=== PATIENT | female | born 1945 | race Caucasian/White ===

== ENCOUNTER 2018-11-21 19:00 | Inpatient (IN) | payer OTHER ==
--- NOTE | 2018-11-21 21:35 | PDOC ---
History of Present Illness - General Chief Complaint: Pain, Acute Stated Complaint: HEMATURIA Time Seen by Provider: 11/21/18 21:34 - History of Present Illness Initial Comments: 11/21/18 21:42 HPI 73 year old woman with a history of HTN, gout, breast CA (2008), kidney stones who presents with 5 days of hematuria, urinary burning and several days of severe bilateral back pain. She also complains of 2 days of pressure-like L sided chest pain that radiating to the R is worse with movement, breathing and with pressing on the chest. She admits to some shortness of breath 2/2 pain and some nausea. She dneies fever, v/d/c, abdominal pain, lightheadedness, headache. She has no other complaints. Patient is visiting from [facility] GENERAL/CONSTITUTIONAL: No fever or chills. No weakness. HEAD, EYES, EARS, NOSE AND THROAT: No change in vision. No ear pain or discharge. No sore throat. CARDIOVASCULAR: see hpi RESPIRATORY: No cough, wheezing, or hemoptysis. GASTROINTESTINAL: No vomiting, diarrhea or constipation. GENITOURINARY: see hpi MUSCULOSKELETAL: No joint or muscle swelling or pain. No neck or back pain. SKIN: No rash NEUROLOGIC: No headache, vertigo, loss of consciousness, or change in strength/ sensation. PE GENERAL: Awake, alert, and fully oriented, in no acute distress HEAD: No signs of trauma, normocephalic, atraumatic EYES: PERRLA, EOMI, sclera anicteric, conjunctiva clear ENT: oropharynx clear without exudates. Moist mucosa NECK: Normal ROM, supple LUNGS: No distress, speaks full sentences, clear to auscultation bilaterally HEART: Regular rate and rhythm, normal S1 and S2, no murmurs, rubs or gallops, peripheral pulses normal and equal bilaterally. ABDOMEN: Soft, nontender, normoactive bowel sounds. No guarding, no rebound. No masses EXTREMITIES : Normal inspection, Normal range of motion, no edema. No clubbing or cyanosis. NEUROLOGICAL: Cranial nerves II through XII grossly intact. Normal speech, no focal sensorimotor deficits SKIN: Warm, Dry, normal turgor, no rashes or lesions noted MDM 73 year old woman with a history of HTN, gout, breast CA (2008), kidney stones who presents with 5 days of hematuria, urinary burning and several days of severe bilateral back pain. DDX including but not limited to: uti vs pyelo vs nephrolithiasis r/o acs vs PE W/U: - cbc, cmp, ekg, ua TX: - ivf, tylenol ED Course: D-dimer elevated - CTA ordered Patient signed out to resident Dr. Keegan Madden, PGY2 Emergency Medicine Past History - Past Medical History Allergies/Adverse Reactions: Allergies Allergy/AdvReac Type Severity Reaction Status Date / Time Penicillins Allergy Unknown Verified 11/22/18 01:42 Home Medications: Ambulatory Orders Aspirin [ASA -] 81 mg PO DAILY 11/22/18 Febuxostat [Uloric] 40 mg PO DAILY 11/22/18 Ibuprofen 800 mg PO BID 11/22/18 Losartan Potassium 100 mg PO DAILY 11/22/18 Temazepam [Restoril -] 15 mg PO HS 11/22/18 Cyclobenzaprine HCl [Flexeril -] 10 mg PO TID PRN 7 Days #21 tablet 11/23/18 Asthma: No Cancer: No Cardiac Disorders: No COPD: No CHF: No DVT: No HTN: Yes Other medical history: Gout - Suicide/Smoking/Psychosocial Hx Smoking History: Never smoked *Physical Exam - Vital Signs Last Vital Signs Temp Pulse Resp BP Pulse Ox 99.8 F H 96 H 20 143/96 100 11/21/18 19:17 11/21/18 19:17 11/21/18 19:17 11/21/18 19:17 11/21/18 19:17 ED Treatment Course - LABORATORY CBC & Chemistry Diagram: 11/23/18 06:00 11/23/18 06:51 *DC/Admit/Observation/Transfer Diagnosis at time of Disposition: Chest pain, Dysuria, Elevated d-dimer - Discharge Dispostion Condition at time of disposition: Improved - Referrals - Patient Instructions - Post Discharge Activity
[2018-11-21] MEDS ORDERED: SODIUM CHLORIDE 1,000 ML IV SCH (21:45)
[2018-11-21] MEDS ORDERED: ACETAMINOPHEN 1000 MG/100 ML VIAL (NON FORMULARY) IVPB ONE (21:56)
[2018-11-21] MEDS ORDERED: ACETAMINOPHEN INJECTION 100 ML IVPB ONE (22:34)
[2018-11-21 23:52] LABS: BASO % 0.9 % (0-2.0); EOS % 0.7 % (0-4.5); HEMATOCRIT 34.8 % (32.4-45.2); HEMOGLOBIN 11.4 GM/dL (10.7-15.3); LYMPH % 23.1 % (8-40); MCH 26.2 pg (25.7-33.7); MCHC 32.7 g/dl (32.0-36.0); MEAN CELL VOLUME 80.1 fl (80-96); MEAN PLT VOLUME 10.6 fl (7.5-11.1); MONO % 13.3 % (3.8-10.2); PLATELET COUNT 212 K/MM3 (134-434); RBC 4.34 M/mm3 (3.60-5.2); RDW 13.1 % (11.6-15.6); WHITE BLOOD COUNT 8.1 K/mm3 (4.0-10.0)
[2018-11-22 00:19] LABS: ALBUMIN 3.1 g/dl (3.4-5.0); BILIRUBIN,TOTAL 0.8 mg/dL (0.2-1); BLOOD UREA NITROGEN 10.9 mg/dL (7-18); CALCIUM 8.6 mg/dL (8.5-10.1); CREATININE 0.6 mg/dL (0.55-1.3); POTASSIUM 3.8 mmol/L (3.5-5.1); TOT PROT 6.8 g/dl (6.4-8.2)
[2018-11-22] MEDS ORDERED: morphine CARPU-JECT 2 MG/1 ML DISP.SYRIN IVPUSH ONE (00:38)
[2018-11-22] MEDS ORDERED: MORPHINE SULFATE 2 MG/ML VIAL ONE (00:58)
[2018-11-22 02:05] LABS: EPI CELLS 3.6 /HPF (0-5/HPF); HYALINE CASTS 5 /lpf (0-8); URINE APPEARANCE CLEAR; URINE BACTERIA 84.5 /hpf (NEGATIVE); URINE BILIRUBIN NEGATIVE (NEGATIVE); URINE COLOR YELLOW; URINE GLUCOSE (UA) NEGATIVE (NEGATIVE); URINE KETONE NEGATIVE (NEGATIVE); URINE LEUK ESTERASE 1+ (NEGATIVE); URINE NITRITE NEGATIVE (NEGATIVE); URINE PROTEIN 1+ (NEGATIVE); URINE RBC 1 /hpf (0-4); URINE UROBILINOGEN 0.2 mg/dL (0.2-1.0); URINE WBC 28 /hpf (0-5)
--- NOTE | 2018-11-22 02:20 | PDOC ---
*Physical Exam - Vital Signs Last Vital Signs Temp Pulse Resp BP Pulse Ox 98.3 F 72 20 120/93 100 11/22/18 00:48 11/22/18 01:00 11/22/18 01:00 11/22/18 01:00 11/22/18 01:00 ED Treatment Course - LABORATORY CBC & Chemistry Diagram: 11/21/18 22:20 11/21/18 22:20 - ADDITIONAL ORDERS Additional order review: Laboratory Results 11/22/18 11/22/18 11/21/18 00:20 00:20 22:20 D-Dimer 1182 H Sodium Potassium Chloride Carbon Dioxide Anion Gap BUN Creatinine Est GFR (CKD-EPI)AfAm Est GFR (CKD-EPI)NonAf Random Glucose Calcium Total Bilirubin AST ALT Alkaline Phosphatase Troponin I < 0.02 Total Protein Albumin Lipase Cancelled 11/21/18 22:20 D-Dimer Sodium 137 Potassium 3.8 Chloride 104 Carbon Dioxide 25 Anion Gap 8 BUN 10.9 Creatinine 0.6 Est GFR (CKD-EPI)AfAm 106.28 Est GFR (CKD-EPI)NonAf 91.70 Random Glucose 100 Calcium 8.6 Total Bilirubin 0.8 AST 10 L ALT 8 L Alkaline Phosphatase 60 Troponin I Total Protein 6.8 Albumin 3.1 L Lipase 96 11/21/18 22:20 RBC 4.34 MCV 80.1 MCHC 32.7 RDW 13.1 MPV 10.6 Neutrophils % 62.0 Lymphocytes % 23.1 Monocytes % 13.3 H Eosinophils % 0.7 Basophils % 0.9 - Medications Given in the ED: ED Medications Discontinued Medications Generic Name Dose Route Start Last Admin Trade Name Bryn PRN Reason Stop Dose Admin Acetaminophen 1,000 mg 11/21/18 21:56 11/21/18 22:35 Ofirmev Injection - IVPB 11/21/18 21:57 1,000 mg ONCE ONE Administration Morphine Sulfate 2 mg 11/22/18 00:38 11/22/18 01:05 Morphine Injection - IVPUSH 11/22/18 00:39 2 mg ONCE ONE Administration Medical Decision Making - Medical Decision Making Pt was signed out to me by resident Dr. Madden, who explained the presentation , ED course, any pending results, and needed interventions. Pending results include CTA and CT abd/pelvis. Pt is currently stable and is in CT scan. UA showed mild UTI, +LE, +bacteria, -nitrite 11/22/18 02:21 CT abd/pelvis with no acute pathology CTA non-diagnostic for PE, but CTA was stopped mcc through the exam. Thoracic aortic aneurysm 4.5 cm. Pt to be admitted for repeat CTA. Providing additional IV fluids before scan. 11/22/18 03:56 Pt admitted to hospitalist team (Dr. Muniz). Hospitalist team at bedside. 11/22/18 04:03 *DC/Admit/Observation/Transfer Diagnosis at time of Disposition: Dysuria, Elevated d-dimer Chest pain Qualifiers: Chest pain type: unspecified Qualified Code(s): R07.9 - Chest pain, unspecified - Discharge Dispostion Condition at time of disposition: Stable Decision to Admit order: Yes - Referrals - Patient Instructions - Post Discharge Activity
--- NOTE | 2018-11-22 02:49 | PDOC ---
Documentation entered by Christine Browning SCRIBE, acting as scribe for Samara Daniel DO. Samara Daniel DO: This documentation has been prepared by the Nam priest Adrianna, SCRIBE, under my direction and personally reviewed by me in its entirety. I confirm that the documentation accurately reflects all work, treatment, procedures, and medical decision making performed by me. Attending Attestation - Resident Resident Name: Alyce Madden - ED Attending Attestation I have performed the following: I have examined & evaluated the patient, The case was reviewed & discussed with the resident, I agree w/resident's findings & plan - HPI HPI: The patient is a 73 year old woman. with a significant PMH of HTN, gout, breast CA (2008), and kidney stones. who presents to the ED for evaluation of urinary symptoms and back pain for 5 days. Patient endorses hematuria and dysuria with associated bilateral low back pain. Patient additionally reports left sided chest pain that is exacerbated with movement and inspiration, with associated SOB. Allergies: NKA, NKDA Surgical History: None reported Social History: Denies EtOH, tobacco, or illicit drug use - Physicial Exam PE: Agree with resident exam. - Medical Decision Making 11/22/18 02:45 73-year-old female with low back pain following travel Urine suggests mild urinary tract infection Plan for CT abdomen and pelvis to rule out ureterolithiasis D-dimer elevated in setting of recent travel and mild shortness of breath associated with pain Plan for CTA Disposition pending imaging
--- NOTE | 2018-11-22 03:38 | PN ---
Teaching Attending Note Name of Resident: Katherine George ATTENDING PHYSICIAN STATEMENT I saw and evaluated the patient. I reviewed the resident's note and discussed the case with the resident. I agree with the resident's findings and plan as documented. SUBJECTIVE: Patient is a 73 year old woman who is visiting from [place] and has PMH of Penicillin allergy, HTN, Gout, Breast cancer (2008) and Kidney stones who presents with 5 days of hematuria, urinary burning and severe bilateral back pain. She also complains of 2 days of pressure-like left sided chest pain that radiates to the right. Pain is worse with movement, breathing and with pressing on the chest. She admits to some shortness of breath due to pain and to some nausea. She denies fever, chills, vomiting, diarrhea, abdominal pain, lightheadedness or headache. Has FH of HTN and CAD. OBJECTIVE: Alert Vital Signs Period Temp Pulse Resp BP Sys/Marques Pulse Ox Last 24 Hr 98.3 F-99.8 F 70-96 20-20 120-143/93-96 97-100 HEENT: No Jaundice, eye redness or discharge, PERRLA, EOMI. Normocephalic, atraumatic. External ears are normal and hearing is grossly intact. No nasal discharge. Neck: Supple, nontender. No palpable adenopathy or thyromegaly. No JVD Chest: Good effort. Clear to auscultation and percussion. Heart: Regular. No S3, rub or murmur Abdomen: Not distended, soft, nontender and no HSM. No rebound or guarding. Normal bowel sounds. Ext: Peripheral pulses intact. No leg edema. Skin: Warm and dry. No petechiae, rash or ecchymosis. Neuro: Alert. Oriented x3. CN 2-12 grossly intact. Sensation grossly intact in all four extremities and DTR are symmetric. Psych: Appropriate mood and affect. Good insight. Current Medications Generic Name Dose Route Start Last Admin Trade Name Freq PRN Reason Stop Dose Admin Sodium Chloride 1,000 mls @ 42 mls/hr 11/21/18 21:45 11/21/18 22:30 Normal Saline - IV 42 mls/hr ASDIR BUZZ Administration Sodium Chloride 1,000 mls @ 150 mls/hr 11/22/18 03:30 Normal Saline - IV ASDIR BUZZ Abnormal Lab Results 11/21/18 11/21/18 11/22/18 22:20 22:20 00:20 Monocytes % 13.3 H D-Dimer 1182 H AST 10 L ALT 8 L Albumin 3.1 L Urine Protein Ur Leukocyte Esterase 11/22/18 01:30 Monocytes % D-Dimer AST ALT Albumin Urine Protein 1+ H Ur Leukocyte Esterase 1+ H ASSESSMENT AND PLAN: 1. Chest pain/UTI - EKG shows NSR with PACs and no significant ST-T wave changes. Initial troponin is negative. Will admit to telemetry to rule out ACS nd get ECHO. Will treat UTI with Macrobid. CT abdomen/pelvis showed dilated right ureter with no stones; an ascending aortic aneurysm - will refer to vascular surgery for follow up. CTA chest is nondiagnostic for pulmonary embolism. Based on strong clinical suspicion for PE, will commence full dose lovenox, get VQ scan and/or repeat CTA after 24 hours. Consult Pulmonary. 2. Hypoalbuminemia - Possibly due to combined effects of malnutrition and inflammation associated with comorbid chronic conditions. Will ensure adequate dietary protein intake and also consult environmental consultant. 3. Obesity Counseled on the risks associated with obesity. Will provide patient all the necessary assistance, counseling and positive reinforcement to facilitate weight loss. Consult environmental consultant. 4. Hypertension - Restart suitable outpatient antihypertensive drugs when clinically appropriate. Revise regimen to ensure [id number] excellent BP control and halfway house counselor patient on the injurious effects of uncontrolled hypertension. Nonpharmacologic measures to control hypertension like weight loss , salt restriction and exercise discussed. Importance of adherence to treatment regimen and attainment of normotension emphasized. 5. DVT prophylaxis - On empiric full dose Lovenox for PE. 6. Advance directives - Full code
[2018-11-22] MEDS ORDERED: NITROFURANTOIN MACROCRYSTAL 50 MG CAPSULE (FP) PO SCH ×3 (04:00→11:30)
[2018-11-22] MEDS ORDERED: NITROFURANTOIN MACROCRYSTAL 50 MG CAPSULE (FP) PO ONE (04:00)
[2018-11-22] MEDS: SODIUM CHLORIDE 1,000 ML IV SCH (04:21)
[2018-11-22] MEDS ORDERED: NITROFURANTOIN MACROCRYSTAL 50 MG CAPSULE (FP) ONE ×2 (04:23→11:57)
--- NOTE | 2018-11-22 04:25 | HP ---
CHIEF COMPLAINT: Dysuria PCP: None (PCP in [place]) HISTORY OF PRESENT ILLNESS: Patient is a 73 year old female with PMH of HTN, gout, and breast CA who presents with dysuria for 5 days. She denies any urinary frequency, urgency, or gross hematuria but notes that her urine has been an orangeish color. Pt complains of associated BL lower back pain that she attributes to her urinary symptoms. No recent heavy lifting or trauma. She denies fevers or chills. 2 days ago, pt''s back pain began radiating to her L chest. L-sided chest pain is reproducible, pleuritic, exacerbated with movement. She has mild difficulty breathing due to the pain. No hx of frequent UTIs but she has had several kidney stones in the past that were medically treated. ER course was notable for: (1) UA: 1+ LE, 28 WBC (2) Given 1 dose macrobid (3) D-dimer: 1182, CTA was non-diagnostic for PE due to inadequate contrast Recent Travel: Visiting daughter from [place], arrived 2 months ago. PAST MEDICAL HISTORY: HTN Gout Breast CA (2008) Kidney stones PAST SURGICAL HISTORY: Breast resection Social History: Smoking: denies Alcohol: denies Drugs: denies Family History: Mother: HTN Father: [place] () Son: HTN Allergies Penicillins Allergy (Unknown, Verified 11/22/18 01:42) HOME MEDICATIONS: REVIEW OF SYSTEMS CONSTITUTIONAL: chills Absent: fever, diaphoresis, generalized weakness, malaise, loss of appetite, weight change HEENT: Absent: rhinorrhea, nasal congestion, throat pain, throat swelling, difficulty swallowing, mouth swelling, ear pain, eye pain, visual changes CARDIOVASCULAR: Absent: chest pain, syncope, palpitations, irregular heart rate, lightheadedness , peripheral edema RESPIRATORY: Absent: cough, shortness of breath, dyspnea with exertion, orthopnea, wheezing, stridor, hemoptysis GASTROINTESTINAL: Absent: abdominal pain, abdominal distension, nausea, vomiting, diarrhea, constipation, melena, hematochezia GENITOURINARY: dysuria Absent: frequency, urgency, hesitancy, hematuria, flank pain, genital pain MUSCULOSKELETAL: lower back pain Absent: myalgia, arthralgia, joint swelling, neck pain SKIN: Absent: rash, itching, pallor HEMATOLOGIC/IMMUNOLOGIC: Absent: easy bleeding, easy bruising, lymphadenopathy, frequent infections ENDOCRINE: Absent: unexplained weight gain, unexplained weight loss, heat intolerance, cold intolerance NEUROLOGIC: Absent: headache, focal weakness or paresthesias, dizziness, unsteady gait, seizure, mental status changes, bladder or bowel incontinence PSYCHIATRIC: Absent: anxiety, depression, suicidal or homicidal ideation, hallucinations. PHYSICAL EXAMINATION Vital Signs - 24 hr 11/21/18 11/22/18 11/22/18 19:17 00:48 01:00 Temperature 99.8 F H 98.3 F Pulse Rate 96 H Pulse Rate [ 70 72 Apical] Respiratory 20 20 Rate Blood Pressure 143/96 Blood Pressure 120/93 120/93 [Right] O2 Sat by Pulse 100 98 100 Oximetry (%) 11/22/18 02:45 Temperature Pulse Rate Pulse Rate [ Apical] Respiratory Rate Blood Pressure Blood Pressure [Right] O2 Sat by Pulse 97 Oximetry (%) GENERAL: Awake, alert, and fully oriented, in no acute distress. HEAD: Normal with no signs of trauma. EYES: Pupils equal, round and reactive to light, extraocular movements intact, sclera anicteric, conjunctiva clear. No lid lag. EARS, NOSE, THROAT: Ears normal, nares patent, oropharynx clear without exudates. Moist mucous membranes. NECK: Normal range of motion, supple without lymphadenopathy, JVD, or masses. LUNGS: Breath sounds equal, clear to auscultation bilaterally. No wheezes, and no crackles. No accessory muscle use. HEART: Regular rate and rhythm, normal S1 and S2 without murmur, rub or gallop. ABDOMEN: Mild ower abd tenderess. Soft, not distended, normoactive bowel sounds , no guarding, no rebound, no masses. No hepatomegaly or splenomegaly. MUSCULOSKELETAL: Normal range of motion at all joints. No bony deformities. No CVA tenderness. Tenderness at lower back BL. Positive straight leg test UPPER EXTREMITIES: 2+ pulses, warm, well-perfused. No cyanosis. No clubbing. No peripheral edema. LOWER EXTREMITIES: 2+ pulses, warm, well-perfused. No calf tenderness. No peripheral edema. NEUROLOGICAL: Cranial nerves II-XII intact. Normal speech. Normal gait. Sensation intact BL PSYCHIATRIC: Cooperative. Good eye contact. Appropriate mood and affect. SKIN: Warm, dry, normal turgor, no rashes or lesions noted, normal capillary refill. Laboratory Results - last 24 hr CBC, BMP 11/21/18 22:20 11/21/18 22:20 ] Urine Test Results Urine Color Yellow Urine Appearance Clear Urine pH 6.0 (5.0-8.0) Ur Specific [place] 1.011 (1.010-1.035) Urine Protein 1+ (NEGATIVE) H Urine Glucose (UA) Negative (NEGATIVE) Urine Ketones Negative (NEGATIVE) Urine Blood Negative (NEGATIVE) Urine Nitrite Negative (NEGATIVE) Urine Bilirubin Negative (NEGATIVE) Ur Leukocyte Esterase 1+ (NEGATIVE) H ASSESSMENT/PLAN: Patient is a 73 year old female with PMH of HTN, gout, and breast CA who presents with dysuria for 5 days. #Dysuria UA: 1+ LE, 28 WBC, 1+ protein Unlikely pyelo given imaging, afebrile, no leukocytosis, no CVA tenderness Will cont to treat with macrobid Q6H F/u urine cx #Low back pain Neg red flag sx Sensation intact, no incontinence, neurovascularly intact Straight leg test positive, indicates likely 2/2 arthritis or herniated disc. Recommend MRI as outpt for further w/u May also be 2/2 UTI Pain control with tylenol PT eval, possible benefit to rehab as outpt #Chest pain with subjective SOB Given pt's hx and elevated D-dimer, cannot r/o PE CTA was non-diagnostic. Consulting pulm for eval and V/Q scan as pt cannot repeat CTA yet. Recommend repeat CTA in 24 hours Will treat with full dose lovenox BID. Pt given one dose 70mg SQ at 5am. Pain is reproducible and exacerbated with movement. May also be referred pain from lower back, but cannot r/o ACS Trop neg, cont to trend serial trops. EKG NSR and no ischemic changes Monitor on tele #Aneurysm 4.5cm fusiform aneurysm in ascending aorta. Pt denies hx of aneurysm or ever being told she has one Recommend f/u with vascular as outpt for monitoring and bi-annual CT imaging #HTN Cont home meds: losartan 100mg daily #Gout Med rec pt's dose of uloric in am and cont #Breast CA Stable at this time #FEN IV NS @ 50ml/hr Sodium-controlled diet #DVT ppx Treating with full dose lovenox BID #Dispo Monitor on tele Visit type - Emergency Visit Emergency Visit: Yes ED Registration Date: 11/22/18 Care time: The patient presented to the Emergency Department on the above date and was hospitalized for further evaluation of their emergent condition. - New Patient This patient is new to me today: Yes Date on this admission: 11/22/18 - Critical Care Critical Care patient: No ATTENDING PHYSICIAN STATEMENT I saw and evaluated the patient. I reviewed the resident's note and discussed the case with the resident. I agree with the resident's findings and plan as documented. SUBJECTIVE: OBJECTIVE: ASSESSMENT AND PLAN:
[2018-11-22] MEDS ORDERED: SODIUM CHLORIDE 1,000 ML IV SCH (04:45)
[2018-11-22] MEDS ORDERED: ENOXAPARIN NA (PORCINE) 60 MG/0.6 ML DISP.SYRIN SQ ONE (04:45)
[2018-11-22] MEDS ORDERED: ACETAMINOPHEN 1000 MG/100 ML VIAL (NON FORMULARY) IVPB ONE (04:46)
[2018-11-22] MEDS ORDERED: ACETAMINOPHEN INJECTION 100 ML IVPB ONE (05:50)
[2018-11-22] MEDS ORDERED: ENOXAPARIN NA (PORCINE) 80 MG/0.8 ML DISP.SYRIN SQ ONE ×2 (05:50→22:27)
--- NOTE | 2018-11-22 10:06 | ECHO ---
Version: 1 Name: JEANIE PRUETT Exam: Adult Echocardiogram Study Date: 11/22/2018, 8:18 AM Age: 73 Years MMode/2D Measurements & Calculations IVSd: 1.06 cm LVIDs: 2.9 cm LVIDd: 3.9 cm LVPWd: 1.09 cm LAV (MOD-bp): 45.3 ml LVOT diam: 2.02 cm Ao root diam: 3.7 cm LA dimension: 3.4 cm Doppler Measurements & Calculations MV E max elvis: 94.6 cm/sec Med E/e': 15.0 MV A max elvis: 99.9 cm/sec Med Peak E' Elvis: 6.3 cm/sec MV E/A: 0.95 Lat E/e': 11.8 Lat Peak E' Elvis: 8.1 cm/sec MR max P.7 mmHg Ao max P.2 mmHg Ao V2 max: 167.6 cm/sec AI P1/2t: 875.7 msec TR max elvis: 221.3 cm/sec TR max P.6 mmHg Left Ventricle The left ventricle is normal in size. Left ventricular systolic function is low normal. Abnormal bonifacio stolic relaxation. Right Ventricle The right ventricle is normal in size and function. Atria Normal left and right atrial size and function. Mitral Valve The mitral valve is normal in structure and function. There is mild mitral regurgitation. Tricuspid Valve The tricuspid valve is normal in structure and function. There is mild tricuspid regurgitation. Aortic Valve Fibrocalcific changes of the AV without aortic stenosis. Pulmonic Valve The pulmonic valve is normal in structure and function. Great Vessels The aortic root is normal size. Pericardium/Pleura There is no pericardial effusion. Summary Statements The left ventricle is normal in size. Left ventricular systolic function is low normal. Abnormal diastolic relaxation The right ventricle is normal in size and function. Normal left and right atrial size and function. The mitral valve is normal in structure and function. There is mild mitral regurgitation. The tricuspid valve is normal in structure and function. There is mild tricuspid regurgitation. Fibrocalcific changes of the AV without aortic stenosis The pulmonic valve is normal in structure and function. EF 50% PASP 29 mmHg MD Tyson Curry 11/22/2018, 9:05 AM Ordering Physician: Katherine George Performed By: Eloise Medina
[2018-11-22] MEDS ORDERED: CEFTRIAXONE 1,000 MG in DEXTROSE 5%-WATER - 50 ML IVPB ONE (10:56)
[2018-11-22] MEDS: LOSARTAN POTASSIUM 50 MG TABLET (FP) PO SCH (11:10)
[2018-11-22 11:11] LABS: EOS % 4.8 % (0-4.5); HEMATOCRIT 33.6 % (32.4-45.2); HEMOGLOBIN 11.4 GM/dL (10.7-15.3); LYMPH % 29.9 % (8-40); MCH 26.9 pg (25.7-33.7); MCHC 33.9 g/dl (32.0-36.0); MEAN CELL VOLUME 79.2 fl (80-96); MONO % 14.5 % (3.8-10.2); NEUT % 49.8 % (42.8-82.8); PLATELET COUNT 194 K/MM3 (134-434); RBC 4.24 M/mm3 (3.60-5.2); RDW 12.9 % (11.6-15.6); WHITE BLOOD COUNT 6.1 K/mm3 (4.0-10.0)
[2018-11-22 11:16] LABS: ALBUMIN 3.1 g/dl (3.4-5.0); BILIRUBIN,TOTAL 0.8 mg/dL (0.2-1); CALCIUM 8.7 mg/dL (8.5-10.1); CREATININE 0.6 mg/dL (0.55-1.3); POTASSIUM 3.4 mmol/L (3.5-5.1); TOT PROT 6.8 g/dl (6.4-8.2)
[2018-11-22] MEDS ORDERED: LOSARTAN POTASSIUM 50 MG TABLET (FP) ONE (11:57)
--- NOTE | 2018-11-22 14:56 | PN ---
Physical Exam: SUBJECTIVE: Patient seen and examined at bedside. Pt states she has severe chest pain worse when she moves. pt denies SOB and palpitations. OBJECTIVE: Vital Signs Period Temp Pulse Resp BP Sys/Marques Pulse Ox Last 24 Hr 98.3 F-99.8 F 58-96 18-20 120-143/93-96 95-100 GENERAL: The patient is awake, alert, and fully oriented, in no acute distress. LUNGS: Breath sounds equal, clear to auscultation bilaterally, no wheezes, no crackles, no accessory muscle use. HEART: Regular rate and rhythm, S1, S2 without murmur, rub or gallop. ABDOMEN: Soft, nontender, nondistended, normoactive bowel sounds, no guarding EXTREMITIES: 2+ pulses, warm, well-perfused, no edema. SKIN: Warm, dry, normal turgor, no rashes or lesions noted Laboratory Last Values WBC 6.1 K/mm3 (4.0-10.0) 11/22/18 10:20 RBC 4.24 M/mm3 (3.60-5.2) 11/22/18 10:20 Hgb 11.4 GM/dL (10.7-15.3) 11/22/18 10:20 Hct 33.6 % (32.4-45.2) 11/22/18 10:20 MCV 79.2 fl (80-96) L 11/22/18 10:20 MCH 26.9 pg (25.7-33.7) 11/22/18 10:20 MCHC 33.9 g/dl (32.0-36.0) 11/22/18 10:20 RDW 12.9 % (11.6-15.6) 11/22/18 10:20 Plt Count 194 K/MM3 (134-434) 11/22/18 10:20 MPV 10.0 fl (7.5-11.1) 11/22/18 10:20 Absolute Neuts (auto) 3.1 K/mm3 (1.5-8.0) 11/22/18 10:20 Neutrophils % 49.8 % (42.8-82.8) 11/22/18 10:20 Lymphocytes % 29.9 % (8-40) D 11/22/18 10:20 Monocytes % 14.5 % (3.8-10.2) H 11/22/18 10:20 Eosinophils % 4.8 % (0-4.5) H D 11/22/18 10:20 Basophils % 1.0 % (0-2.0) 11/22/18 10:20 Nucleated RBC % 0 % (0-0) 11/22/18 10:20 D-Dimer 1182 ng/ml (0-500) H 11/22/18 00:20 Sodium 141 mmol/L (136-145) 11/22/18 10:20 Potassium 3.4 mmol/L (3.5-5.1) L 11/22/18 10:20 Chloride 108 mmol/L (98-107) H 11/22/18 10:20 Carbon Dioxide 25 mmol/L (21-32) 11/22/18 10:20 Anion Gap 8 MMOL/L (8-16) 11/22/18 10:20 BUN 10.0 mg/dL (7-18) 11/22/18 10:20 Creatinine 0.6 mg/dL (0.55-1.3) 11/22/18 10:20 Est GFR (CKD-EPI)AfAm 106.28 11/22/18 10:20 Est GFR (CKD-EPI)NonAf 91.70 11/22/18 10:20 POC Glucometer 82 UNITS (80-120) 11/22/18 08:24 Random Glucose 106 mg/dL (74-106) 11/22/18 10:20 Calcium 8.7 mg/dL (8.5-10.1) 11/22/18 10:20 Total Bilirubin 0.8 mg/dL (0.2-1) 11/22/18 10:20 AST 13 U/L (15-37) L 11/22/18 10:20 ALT 10 U/L (13-61) L 11/22/18 10:20 Alkaline Phosphatase 62 U/L (45-117) 11/22/18 10:20 Troponin I < 0.02 ng/ml (0.00-0.05) 11/21/18 22:20 Total Protein 6.8 g/dl (6.4-8.2) 11/22/18 10:20 Albumin 3.1 g/dl (3.4-5.0) L 08/20/19 10:20 Lipase 96 U/L (73-393) 11/21/18 22:20 Urine Color Yellow 11/22/18 01:30 Urine Appearance Clear 11/22/18 01:30 Urine pH 6.0 (5.0-8.0) 11/22/18 01:30 Ur Specific [place] 1.011 (1.010-1.035) 11/22/18 01:30 Urine Protein 1+ (NEGATIVE) H 11/22/18 01:30 Urine Glucose (UA) Negative (NEGATIVE) 11/22/18 01:30 Urine Ketones Negative (NEGATIVE) 11/22/18 01:30 Urine Blood Negative (NEGATIVE) 11/22/18 01:30 Urine Nitrite Negative (NEGATIVE) 11/22/18 01:30 Urine Bilirubin Negative (NEGATIVE) 11/22/18 01:30 Urine Urobilinogen 0.2 mg/dL (0.2-1.0) 11/22/18 01:30 Ur Leukocyte Esterase 1+ (NEGATIVE) H 11/22/18 01:30 Urine WBC (Auto) 28 /hpf (0-5) 11/22/18 01:30 Urine RBC (Auto) 1 /hpf (0-4) 11/22/18 01:30 Urine Casts (Auto) 5 /lpf (0-8) 11/22/18 01:30 U Epithel Cells (Auto) 3.6 /HPF (0-5/HPF) 11/22/18 01:30 Urine Bacteria (Auto) 84.5 /hpf (NEGATIVE) 11/22/18 01:30 Current Medications Acetaminophen (Tylenol -) 650 mg PO Q6H PRN PRN Reason: Fever Or Pain Enoxaparin Sodium (Lovenox -) 70 mg SQ BID [facility] Sodium Chloride (Normal Saline -) 1,000 mls @ 150 mls/hr IV ASDIR BUZZ Last Admin: 11/22/18 04:21 Dose: 150 mls/hr Sodium Chloride (Normal Saline -) 1,000 mls @ 50 mls/hr IV ASDIR BUZZ Stop: 11/23/18 04:41 Last Admin: 11/22/18 04:59 Dose: 50 mls/hr Losartan Potassium (Cozaar -) 100 mg PO DAILY BUZZ Last Admin: 11/22/18 11:10 Dose: 100 mg Nitrofurantoin Macrocrystals (Macrodantin -) 100 mg PO Q6HPO [facility] CT A/P : IMPRESSION: Mild bibasal atelectatic changes. Mild cardiomegaly with a trace of pericardial effusion. Tiny gallstones without CT evidence of acute cholecystitis. Left adrenal low-attenuation nodule measuring 2.4 x 1.8 cm that statistically may represent an adrenal adenoma. Irregular contour of the right kidney suggestive of significant scarring with multiple calcific densities the largest in its lower pole measuring 2.5 cm. Findings may be due to chronic infection. Moderate right renal hydroureteronephrosis without gross evidence of an obstructing stone. Nonvisualization of the appendix. There is no evidence of small bowel obstruction. No CT evidence of an acute process in the abdomen and pelvis. A preliminary report was forwarded by the [facility] service, IMAGING PMP ASSESSMENT/PLAN: 73 yo F with PMH of HTN, gout, and breast CA who presents to ED w/ 1 week LBP, dysuria for 5 days. Pt also complains of reproducible CP x 2 days. Atypical CP -EKG reviewed by me, NSR -reproducible, worse on palpation -troponin neg -D-Dimer elevated, CTA unable to r/o PE as there was issue w/ contrast -Pulm recs appreciated -awaiting LE doppler to r/o DVT -pt had cardiac testing in september, awaiting f/u from prior records Dysuria -UA: 1+ LE, 28 WBC, 1+ protein -awaiting U Cx -c/w macrobid Q6 Low back pain -further workup outpt -tylenol for pain mgmt -PT Aortic Aneurysm -incidental CT finding -outpt vascular f/u -bi annual CT imaging HTN -C/w home med, losartan 100mg daily Gout -c/w uloric Breast CA -f/u outpt F/E/N -Sodium-controlled diet DVT ppx - full dose lovenox BID Dispo: continue to monitor on tele Visit type - Emergency Visit Emergency Visit: Yes ED Registration Date: 11/22/18 Care time: The patient presented to the Emergency Department on the above date and was hospitalized for further evaluation of their emergent condition. - New Patient This patient is new to me today: Yes Date on this admission: 11/22/18 - Critical Care Critical Care patient: No - Discharge Referral Referred to [facility] No ATTENDING PHYSICIAN STATEMENT I saw and evaluated the patient. I reviewed the resident's note and discussed the case with the resident. I agree with the resident's findings and plan as documented. SUBJECTIVE: OBJECTIVE: ASSESSMENT AND PLAN:
--- NOTE | 2018-11-22 15:00 | CON.PULM ---
Consult Consult Specialty:: PULMONARY Referred by:: Dr Chauhan Reason for Consultation:: r/o PE - History of Present Illness Chief Complaint: chest pain History of Present Illness: 73yo female with h/o HTN, gout, breast ca s/p right lumpectomy/lymph node dissection/RT who was admitted with dysuria and chest pain x 5 days. Chest pain described as starting near her left axilla, pressure like radiating across chest to the right. Worse with rotating her torso to the left but completely resolves in other positions. When the pain occurs, she does report shortness of breath. No fevers, chills or sweats. No palpitations. She is a remote smoker, no personal or family history of clots. No prolonged sedentary periods or leg trauma. Denies leg swelling or pain. CTA chest attempted but poorly timed study. - History Source History Provided By: Patient, Family Member, Medical Record Limitations to Obtaining History: No Limitations - Past Medical History Cardio/Vascular: Yes: HTN - Smoking History Smoking history: Never smoked Home Medications - Allergies Allergies/Adverse Reactions: Allergies Allergy/AdvReac Type Severity Reaction Status Date / Time Penicillins Allergy Unknown Verified 11/22/18 01:42 - Home Medications Home Medications: Ambulatory Orders Aspirin [ASA -] 81 mg PO DAILY 11/22/18 Ibuprofen 800 mg PO BID 11/22/18 Losartan Potassium 100 mg PO DAILY 11/22/18 Temazepam [Restoril] 15 mg PO HS 11/22/18 Review of Systems - Review of Systems Constitutional: denies: Chills, Fever Eyes: denies: Recent Change in Vision HENT: denies: Nasal Congestion, Throat Pain Cardiovascular: reports: Chest Pain, Shortness of Breath. denies: Palpitations Respiratory: denies: Cough, Hemoptysis, Wheezing Gastrointestinal: denies: Abdominal Pain, Nausea, Vomiting Genitourinary: reports: Dysuria Neurological: denies: Headache Endocrine: denies: Unexplained Weight Loss Physical Exam Vital Sings: Vital Signs Temperature 98.3 F 11/22/18 00:48 Pulse Rate 58 L 11/22/18 06:33 Respiratory Rate 18 11/22/18 06:33 Blood Pressure 129/96 11/22/18 06:33 O2 Sat by Pulse Oximetry (%) 95 11/22/18 06:33 Constitutional: Yes: Calm Eyes: Yes: Conjunctiva Clear, EOM Intact HENT: Yes: Atraumatic, Normocephalic Neck: Yes: Supple, Trachea Midline Cardiovascular: Yes: Regular Rate and Rhythm Respiratory: Yes: Diminished (decreased breath sounds at the bases) ...Clubbing: No Gastrointestinal: Yes: Normal Bowel Sounds, Soft. No: Tenderness Edema: No Neurological: Yes: Alert, Oriented Labs: CBC, BMP 11/22/18 10:20 11/22/18 10:20 Imaging - Results Chest X-ray: Report Reviewed, Image Reviewed Cat Scan: Report Reviewed, Image Reviewed (no infiltrates) Assessment/Plan UTI Atypical Chest Pain HTN h/o Breast Ca Elevated D-dimer - chest pain positional, reproducible with palpation, resolves with positions, not tachycardic or hypoxic - echocardiogram without right heart abnormalities and pt without risk factors - can obtain LE dopplers and if negative, can defer further PE work up at this time - continue antibiotics - f/u cultures - DVT prophylaxis Thank you for this consult Chauncey Grey MD
--- NOTE | 2018-11-22 16:10 | EKG ---
Test Reason : Blood Pressure : / mmHG Vent. Rate : 095 BPM Atrial Rate : 095 BPM P-R Int : 160 ms QRS Dur : 080 ms QT Int : 374 ms P-R-T Axes : 005 -36 005 degrees QTc Int : 469 ms SINUS RHYTHM WITH PREMATURE ATRIAL COMPLEXES LEFT AXIS DEVIATION MINIMAL VOLTAGE CRITERIA FOR LVH, MAY BE NORMAL VARIANT ABNORMAL ECG NO PREVIOUS ECGS AVAILABLE Confirmed by MD VI, THOMAS ([id number]) on 11/22/2018 4:10:47 PM Referred By: Confirmed By:THOMAS LEBRON MD
--- NOTE | 2018-11-22 17:21 | PN ---
Teaching Attending Note Name of Resident: Whitney Barrera ATTENDING PHYSICIAN STATEMENT I saw and evaluated the patient. I reviewed the resident's note and discussed the case with the resident. I agree with the resident's findings and plan as documented. SUBJECTIVE:c/o CP that is worse with movement. dysuria improved however continues to have orange urine. denies fever, chills, cough, hemoptysis, N/V/C/D treadmill stress test 1998. reports as normal OBJECTIVE: Last Vital Signs Temp Pulse Resp BP Pulse Ox 98.3 F 64 18 123/77 100 11/22/18 00:48 11/22/18 10:00 11/22/18 10:00 11/22/18 10:00 11/22/18 10:00 General NAD CV S1 S2 RRR no murmur/rub/gallop +chest wall tenderness lungs CTA B/L no wheezing/rales/rhonchi Abdomen soft NT/ND Extremiteis +L calf tenderness neg calderon. no pedal edema ASSESSMENT AND PLAN: 73yo F wtih PMH HTN, gout, nephrolithasis, breast ca 2008 with Rtx and chemo s/ p partial masectomy presented with the Er with CP and dysuria and found to have elevated ddimer 1. CP- likely musculoskeletal. concern for PE raised due to elevated ddimer and recent travel from [place]. CTA done was incomplete. will obtain doppler to r/o DVT. pulmonary consulted and stated no indication for VQ scan as risk factors low. can stop full dose lovenox at this time. will trend cardiac enzymes as pt has risk factors for ACS given chest radiation. cardiac monitoring.echo noted. spoke with daughter who would prefer for her to have stress testing with her doctors in [place]. 2. UTI- has rash with PCN. will give bactrim. f/u cx 3. orange urine- does take Vitamin B complex which can cause it but this is new. will monitor for now. UA neg for blood or RBC. not on medication which can induce orange urine. claims not related to any new food consumption 4. AAA- 4.5cm. vascular surgery consult 5. DVT ppx- lovenox 6. spoke with daughter present at bedside. will try to obtain records from [place]. plan to discharge in next 24H if symptoms improved.
[2018-11-22] MEDS: NITROFURANTOIN MACROCRYSTAL 50 MG CAPSULE (FP) PO SCH (18:25)
[2018-11-22] MEDS: ACETAMINOPHEN 325 MG TABLET (FP) PO PRN (19:32)
[2018-11-22] MEDS ORDERED: ACETAMINOPHEN 325 MG TABLET (FP) ONE (19:40)
[2018-11-22] MEDS ORDERED: ENOXAPARIN NA (PORCINE) 80 MG/0.8 ML DISP.SYRIN SQ SCH (22:00)
[2018-11-23] MEDS ORDERED: NITROFURANTOIN MACROCRYSTAL 50 MG CAPSULE (FP) ONE (00:21)
[2018-11-23] MEDS: NITROFURANTOIN MACROCRYSTAL 50 MG CAPSULE (FP) PO SCH ×4 (00:27→17:09)
[2018-11-23 02:32] VITALS: BMI 30.1
[2018-11-23] MEDS: ACETAMINOPHEN 325 MG TABLET (FP) PO PRN (03:15)
[2018-11-23] MEDS: SODIUM CHLORIDE 1,000 ML IV SCH (03:17)
[2018-11-23 08:11] LABS: HEMATOCRIT 32.4 % (32.4-45.2); HEMOGLOBIN 10.8 GM/dL (10.7-15.3); MCH 26.5 pg (25.7-33.7); MCHC 33.4 g/dl (32.0-36.0); MEAN CELL VOLUME 79.3 fl (80-96); MEAN PLT VOLUME 10.4 fl (7.5-11.1); PLATELET COUNT 207 K/MM3 (134-434); RBC 4.08 M/mm3 (3.60-5.2); RDW 12.8 % (11.6-15.6); WHITE BLOOD COUNT 5.7 K/mm3 (4.0-10.0)
[2018-11-23 08:22] LABS: ANION GAP 10 MMOL/L (8-16); BLOOD UREA NITROGEN 8.8 mg/dL (7-18); CALCIUM 8.6 mg/dL (8.5-10.1); CHLORIDE 105 mmol/L (98-107); CO2 26 mmol/L (21-32); CREATININE 0.5 mg/dL (0.55-1.3); GLUCOSE,RANDOM 87 mg/dL (74-106); MAGNESIUM 1.3 mg/dL (1.8-2.4); PHOSPHOROUS 2.7 mg/dL (2.5-4.9); POTASSIUM 3.7 mmol/L (3.5-5.1); SODIUM 141 mmol/L (136-145)
[2018-11-23] MEDS ORDERED: MAGNESIUM SULF 50% (8.12 MEQ/2 ML-1 GM VIAL) IVPB ONE (08:45)
[2018-11-23] MEDS: LOSARTAN POTASSIUM 50 MG TABLET (FP) PO SCH (09:23)
[2018-11-23] MEDS ORDERED: ENOXAPARIN NA (PORCINE) 40 MG/0.4 ML DISP.SYRIN SQ SCH (10:00)
[2018-11-23] MEDS ORDERED: NITROFURANTOIN MACROCRYSTAL 50 MG CAPSULE (FP) PO SCH (10:00)
[2018-11-23] MEDS ORDERED: CYCLOBENZAPRINE HCL 10 MG TABLET (FP) PO PRN (10:37)
--- NOTE | 2018-11-23 10:59 | PN ---
Progress Note, Physician History of Present Illness: PULMONARY ALERT STILL C/O CHEST AND BACK PAIN,REPRODUCIBLE,INCREASED WITH MOVEMENT - Current Medication List Current Medications: Active Medications Acetaminophen (Tylenol -) 650 mg PO Q6H PRN PRN Reason: Fever Or Pain Last Admin: 11/22/18 19:32 Dose: 650 mg Cyclobenzaprine HCl (Flexeril -) 10 mg PO TID PRN PRN Reason: MUSCLE SPASMS Enoxaparin Sodium (Lovenox -) 40 mg SQ DAILY [facility] Last Admin: 11/23/18 09:22 Dose: 40 mg Losartan Potassium (Cozaar -) 100 mg PO DAILY [facility] Last Admin: 11/23/18 09:23 Dose: 100 mg Nitrofurantoin Macrocrystals (Macrodantin -) 100 mg PO Q6HPO [facility] Last Admin: 11/23/18 05:46 Dose: 100 mg - Objective Vital Signs: Vital Signs Temperature 98.7 F 11/23/18 08:26 Pulse Rate 66 11/23/18 08:26 Respiratory Rate 22 H 11/23/18 08:34 Blood Pressure 144/89 11/23/18 08:26 O2 Sat by Pulse Oximetry (%) 100 11/23/18 08:34 Constitutional: Yes: Well Nourished, Calm Eyes: Yes: WNL HENT: Yes: WNL Neck: Yes: WNL Cardiovascular: Yes: Regular Rate and Rhythm, S1, S2 Respiratory: Yes: CTA Bilaterally Gastrointestinal: Yes: Normal Bowel Sounds, Soft Extremities: Yes: WNL Edema: No Labs: CBC, BMP 11/23/18 06:00 11/23/18 06:51 Problem List - Problems (1) Chest pain Code(s): R07.9 - CHEST PAIN, UNSPECIFIED Qualifiers: Chest pain type: unspecified Qualified Code(s): R07.9 - Chest pain, unspecified (2) Dysuria Code(s): R30.0 - DYSURIA (3) Elevated d-dimer Code(s): R79.89 - OTHER SPECIFIED ABNORMAL FINDINGS OF BLOOD CHEMISTRY Assessment/Plan Assessment/Plan UTI Atypical Chest Pain HTN h/o Breast Ca Elevated D-dimer - chest pain positional, reproducible with palpation, resolves with positions, not tachycardic or hypoxic - echocardiogram without right heart abnormalities and pt without risk factors - LE dopplers are negative, can defer further PE work up at this time - antibiotics - f/u cultures - DVT prophylaxis - analgesics DR RIVAS
--- NOTE | 2018-11-23 11:02 | PN ---
Teaching Attending Note Name of Resident: Whitney Barrera ATTENDING PHYSICIAN STATEMENT I saw and evaluated the patient. I reviewed the resident's note and discussed the case with the resident. I agree with the resident's findings and plan as documented. SUBJECTIVE:states CP is better but still there, also having low back pain that is across the lower back which is her chronic pain but causing a lot of discomfort. states she vomited this AM shortly after waking up but ate all her breakfast without difficulty or nausea. denies SOB, cough, fever, chills, N/V/C/ D states orange urine is clearing OBJECTIVE: Last Vital Signs Temp Pulse Resp BP Pulse Ox 98.7 F 66 22 H 144/89 100 11/23/18 08:26 11/23/18 08:26 11/23/18 08:34 11/23/18 08:26 11/23/18 08:34 General NAD CV S1 S2 RRR no murmur/rub/gallop +chest wall tenderness over the L breast lungs CTA B/L no wheezing/rales/rhonchi Abdomen soft NT/ND Extremiteis B/L muscular spasms in lower lumbar region R>L no bone point pain no CVA tenderness ASSESSMENT AND PLAN: 73yo F wtih PMH HTN, gout, nephrolithasis, breast ca 2008 with Rtx and chemo s/ p partial masectomy presented with the Er with CP and dysuria and found to have elevated ddimer 1. CP- likely musculoskeletal. low risk for PE and doppler negative. troponins neg x2. spoke with daughter who wants her to have stress test done in [facility] with her network of doctors there. will have one scheduled for once she returns. 2. back pain- seem muscular. states pain is chronic. lori give flexeril 3. vomiting- possible pain related. tolerated food without difficulty. no nausea or complaints now 4. UTI- has rash with PCN. Ucx negative. d/c abx 5. orange urine- unclear etiology. denies eating any food dyed orange or vitamins or herbal supplements in past few weeks. now is clearing and states its yellow. possible she was dehydrated and was a very dark yellow that appeared orange> urology outpatient if returns 6. AAA- 4.5cm. vascular surgery consult 7. adrenal nodule- outpatient follow up 8. 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 renal function normal. should have it followed iwth primary if not new 9. DVT ppx- lovenox 10. will re-assess later if pain is improved can d/c later today
[2018-11-23 15:02] VITALS: BP 144/83; PULSE 68; TEMP 98.4
--- NOTE | 2018-11-23 15:36 | DS ---
Physical Exam: SUBJECTIVE: Patient seen and examined at bedside. pt states that her pain is improved. pt states her urinary symptoms have resolved. OBJECTIVE: Vital Signs Period Temp Pulse Resp BP Sys/Marques Pulse Ox Last 24 Hr 98 F-98.7 F 64-71 14-22 127-149/83-99 95-100 PHYSICAL EXAM GENERAL: The patient is awake, alert, and fully oriented, in no acute distress. LUNGS: Breath sounds equal, clear to auscultation bilaterally, no wheezes, no crackles, no accessory muscle use. HEART: Regular rate and rhythm, S1, S2 without murmur, rub or gallop. ABDOMEN: Soft, nontender, nondistended, normoactive bowel sounds, no guarding, no rebound EXTREMITIES: 2+ pulses, warm, well-perfused, no edema. SKIN: Warm, dry, normal turgor, no rashes or lesions noted. LABS Laboratory Results - last 24 hr 11/21/18 11/23/18 11/23/18 22:20 06:00 06:51 WBC 5.7 RBC 4.08 Hgb 10.8 Hct 32.4 MCV 79.3 L MCH 26.5 MCHC 33.4 RDW 12.8 Plt Count 207 MPV 10.4 Sodium 137 141 Potassium 3.8 3.7 Chloride 104 105 Carbon Dioxide 25 26 Anion Gap 8 10 BUN 10.9 8.8 Creatinine 0.6 0.5 L Est GFR (CKD-EPI)AfAm 106.28 112.86 Est GFR (CKD-EPI)NonAf 91.70 97.37 Random Glucose 100 87 Calcium 8.6 8.6 Phosphorus 2.7 Magnesium 1.3 L Total Bilirubin 0.8 AST 10 L ALT 8 L Alkaline Phosphatase 60 Troponin I Cancelled < 0.02 Total Protein 6.8 Albumin 3.[address] A/P : IMPRESSION: Mild bibasal atelectatic changes. Mild cardiomegaly with a trace of pericardial effusion. Tiny gallstones without CT evidence of acute cholecystitis. Left adrenal low-attenuation nodule measuring 2.4 x 1.8 cm that statistically may represent an adrenal adenoma. Irregular contour of the right kidney suggestive of significant scarring with multiple calcific densities the largest in its lower pole measuring 2.5 cm. Findings may be due to chronic infection. Moderate right renal hydroureteronephrosis without gross evidence of an obstructing stone. Nonvisualization of the appendix. There is no evidence of small bowel obstruction. No CT evidence of an acute process in the abdomen and pelvis. A preliminary report was forwarded by the [facility] service, IMAGING [facility]: Date of Admission:11/22/18 ASSESSMENT/PLAN: 73 yo F with PMH of HTN, gout, and breast CA who presents to ED w/ 1 week LBP, dysuria for 5 days. Pt also complains of reproducible CP x 2 days. Pt had EKG reviewed showing NSR. The CP was reproducible and worse on palpation. pt had 2 negative troponins. The Pt had DDimer elevated. CTA was unable to r/o PE as there was an issue with the contrast. Pulm evaluated the pt and has a low suspicion for PE. Pt had LE doppler which ruled out DVT. pt had an echo which was wnl and showed no right heart strain. pt was monitored on tele with no acute events. pt is recommended to have a stress test but pt wishes to follow up with her physicians in [place]. Pt also complained of dysuria. UCx resulted negative and antibiotics were discontinued. Pt had a CT chest which showed an aortic aneurysm. it is recommended the pt f/u with CT surgery outpt. The CT also showed L adrenal adenoma and R kidney chronic disease. the pt should f/u these issues with PMD to evaluate for further testing. The pt htn was managed with home losartan. Pt was given flexeril for lower back pain. pt stated relief. Date of Discharge: 11/23/18 Minutes to complete discharge: 36 Discharge Summary Reason For Visit: HEMATURIA,CHEST PAIN Current Active Problems Chest pain (Acute) Dysuria (Acute) Elevated d-dimer (Acute) Condition: Improved - Instructions Diet, Activity, Other Instructions: You came into the hospital with back pain and chest pain. We did several exams to test your heart. A CT of your chest shows that you have an aneurysm in an artery called the aorta. A CT shows that you have a nodule on your left adrenal gland. A CT shows that you may have a chronic infection of your right kidney. Please continue taking your home medications as prescribed. You may continue to take Flexeril three times a day for your back pain as needed. Please use caution while taking Flexeril as this medication can cause sedation. Please avoid driving or operating machinery while taking this medication. Please follow up with your gravure press operator, we recommend you have a stress test for your heart. Please follow up with your primary care physician regarding your health management and back pain. Please follow up with the cardiothoracic surgeon, Dr. Fischer, for management of the aneurysm. Please continue to follow a low sodium diet. Please return to the ER if you have any signs or symptoms of chest pain, shortness of breath, uncontrollable fever, chills, nausea, vomiting, numbness, tingling, or weakness in any part of your body, changes in vision, or slurred speech. Please return to the ER if symptoms persist, worsen, or new symptoms arise. Referrals: [facility] [place] [Provider Group] Tyson Fischer MD [Staff Physician] - Disposition: HOME - Home Medications Comprehensive Discharge Medication List: Ambulatory Orders Aspirin [ASA -] 81 mg PO DAILY 11/22/18 Febuxostat [Uloric] 40 mg PO DAILY 11/22/18 Ibuprofen 800 mg PO BID 11/22/18 Losartan Potassium 100 mg PO DAILY 11/22/18 Temazepam [Restoril -] 15 mg PO HS 11/22/18 Cyclobenzaprine HCl [Flexeril -] 10 mg PO TID PRN 7 Days #21 tablet 11/23/18 This patient is new to me today: No Emergency Visit: No Critical Care patient: No - Discharge Referral Referred to [facility] No ATTENDING PHYSICIAN STATEMENT I saw and evaluated the patient. I reviewed the resident's note and discussed the case with the resident. I agree with the resident's findings and plan as documented. SUBJECTIVE: OBJECTIVE: ASSESSMENT AND PLAN:
--- NOTE | 2018-11-24 11:40 | EKG ---
Test Reason : Blood Pressure : / mmHG Vent. Rate : 066 BPM Atrial Rate : 066 BPM P-R Int : 162 ms QRS Dur : 086 ms QT Int : 430 ms P-R-T Axes : -03 -38 -04 degrees QTc Int : 450 ms NORMAL SINUS RHYTHM LEFT AXIS DEVIATION MODERATE VOLTAGE CRITERIA FOR LVH, MAY BE NORMAL VARIANT ABNORMAL ECG WHEN COMPARED WITH ECG OF 21-NOV-2018 20:48, PREMATURE ATRIAL COMPLEXES ARE NO LONGER PRESENT Confirmed by GERA DECKER, ANALI ([id number]) on 11/24/2018 11:40:04 AM Referred By: Confirmed By:ANALI BOSS MD
== END 2018-11-23 18:31 | disposition home or self-care (01) | DRG 313 ==
LOC: JER 19:00 → JERBED 11-22 03:22 → J4W 11-23 01:33
PROVIDERS: ADMIT Internal Medicine; ATTEND Internal Medicine
DX: R07.89 Other chest pain (principal); E46 Unspecified protein-calorie malnutrition; J98.11 Atelectasis; I31.3 Pericardial effusion (noninflammatory); N13.2 Hydronephrosis with renal and ureteral calculous obstruction; N39.0 Urinary tract infection, site not specified; R30.0 Dysuria; R31.9 Hematuria, unspecified; I10 Essential (primary) hypertension; M10.9 Gout, unspecified; I71.2 Thoracic aortic aneurysm, without rupture; E88.09 Other disorders of plasma-protein metabolism, not elsewhere classified; E66.9 Obesity, unspecified; I51.7 Cardiomegaly; Z68.30 Body mass index [BMI] 30.0-30.9, adult
CPT/HCPCS: 36415; 71275-TC; 74176-TC; 80048; 80053; 81003; 82962; 83690; 83735; 84100; 84484; 85025; 85027; 85379; 87086; 93005; 93010; 93306-TC; 93970-TC; 97116-GP; 97161-GP; 99285-25; J0131; J7030